=== PATIENT | female | born 1945 | race Caucasian/White ===

== ENCOUNTER → 2017-05-29 | Outpatient (CLI) | payer OTHER | END | disposition home or self-care (01) | LOC: MRI 10:45 | DX: M16.12 Unilateral primary osteoarthritis, left hip (principal); R10.2 Pelvic and perineal pain ==

== ENCOUNTER → 2018-07-16 | Outpatient (CLI) | payer OTHER | END | disposition home or self-care (01) | LOC: RAD 13:23 | DX: M47.892 Other spondylosis, cervical region (principal); M48.02 Spinal stenosis, cervical region ==

== ENCOUNTER → 2018-11-12 | Outpatient (CLI) | payer OTHER | END | disposition home or self-care (01) | LOC: RAD 10:26 → MAMMO 11:30 | DX: Z12.31 Encounter for screening mammogram for malignant neoplasm of breast (principal); Z78.0 Asymptomatic menopausal state ==

== ENCOUNTER → 2019-01-14 | Day surgery (SDC) | payer OTHER ==
[~2019-01-14] VITALS: Ht 170.1 cm; Wt 61.2 kg
[~2019-01-14] MED LIST: LISINOPRIL5 MG PO; SIMVASTATIN5 MG PO
--- NOTE | ~2019-01-14 | O ---
[place], [place] OPERATIVE NOTE NAME: ALFIE POLLARD UNIT #: [id number] ROOM: DOCTOR: CATHIE RODRIGUEZ MD BIRTHDATE: [birth year] DOS: 01/14/2019 INDICATION FOR PROCEDURE: A 73-year-old patient who has presented with a chief complaint concerning about colonic screening. ALLERGIES: No known medication. FAMILY HISTORY: Noncontributory. PAST SURGICAL HISTORY: Cholecystectomy and appendectomy. PAST MEDICAL HISTORY: Hypertension and hypercholesterolemia. PROCEDURE: Today's procedure part of investigation is colonoscopy. PREMEDICATION: Propofol. SCOPE: Olympus forward-viewing colonoscope 10L video. REPORT: After putting the patient in left lateral position and application of lubricant to the scope, the scope was introduced. Thereafter under direct visualization, advanced through the length of colon without difficulty. Base of the cecum explored, appendiceal orifice identified, ileocecal valve was defined. There is some retained stool in the cecum. This was as much as possible washed away. No pathology identified. The patient extubated and tolerated the procedure well. IMPRESSION: Normal colonoscopic examination. PLAN: High fiber fruit diet. ACTIVITY: Ad figueroa. FOLLOWUP: Routinely with you in office, p.r.n. visit with us in [facility]. Follow-up colonoscopy in 10 years unless there are symptoms in which case follow-up should be as needed. Thank you very much indeed for your kind referral. [place], [place] OPERATIVE NOTE NAME: ALFIE POLLARD UNIT #: [id number] ROOM: DOCTOR: CATHIE RODRIGUEZ MD BIRTHDATE: [birth year] CATHIE RODRIGUEZ MD CM:OPRECORD:OPERATIVE NOTE [id number] CATHIE RODRIGUEZ MD 02/03/19 1511 interface
[2019-01-14 09:54] VITALS: BP 139/58
[2019-01-14 11:18] VITALS: BP 124/66
[2019-01-14 11:19] VITALS: BP 118/64
[2019-01-14 11:43] VITALS: BP 121/70
== END | disposition home or self-care (01) ==
LOC: SDC 01-12 15:30
DX: Z12.11 Encounter for screening for malignant neoplasm of colon (principal); E78.00 Pure hypercholesterolemia, unspecified; I10 Essential (primary) hypertension; M19.90 Unspecified osteoarthritis, unspecified site; Z98.890 Other specified postprocedural states; Z90.49 Acquired absence of other specified parts of digestive tract; Z79.899 Other long term (current) drug therapy
CPT/HCPCS: 00812; G0121

== ENCOUNTER → 2021-03-22 | Outpatient (CLI) | payer OTHER ==
[2021-03-22 17:03] LABS: BASO % 0.6 % (0.0-1.0); EOS # 0.1 10*3/uL (0.0-0.4); EOS % 1.1 % (1.0-4.0); HEMATOCRIT 37.7 % (37.0-47.0); LYMPH # 1.4 10*3/uL (1.3-4.4); LYMPH % 22.4 % (27.0-41.0); MEAN CELL VOLUME 92.2 fl (81.0-99.0); MEAN CORPUSCULAR HGB 29.3 pg (27.0-31.0); MEAN CORPUSCULAR HGB CONC 31.8 g/dl (33.0-37.0); MEAN PLATELET VOLUME 10.9 fl (9.6-12.3); MONO # 0.6 10*3/uL (0.1-1.0); MONO % 9.2 % (3.0-9.0); NEUT # 4.3 10*3/uL (2.3-7.9); NEUT % 66.5 % (47.0-73.0); PLATELET COUNT AUTOMATED 268 10*3/uL (130-400); RED BLOOD COUNT 4.09 10*6/uL (4.10-5.10); RED CELL DISTRI WIDTH 12.6 % (0-14.5); WHITE BLOOD COUNT 6.4 10*3/uL (4.8-10.8)
[2021-03-22 19:41] LABS: BF LYMPHOCYTES 4 %; BF MACROPHAGES 13 %; BF NEUTROPHILS 83 %
[2021-03-22 19:43] LABS: BODY FLUID WBC 10840 /uL
[2021-03-23 15:07] LABS: ACID FAST SPEC PROCESSING Direct Inoculation (.)
== END | disposition home or self-care (01) ==
LOC: LAB 15:58
PROVIDERS: ATTEND Orthopaedic Surgery
DX: M25.462 Effusion, left knee (principal)

== ENCOUNTER → 2021-10-02 | Outpatient (CLI) | payer OTHER | END | disposition home or self-care (01) | LOC: MAMMO 09:21 | PROVIDERS: ATTEND Internal Medicine | DX: Z12.31 Encounter for screening mammogram for malignant neoplasm of breast (principal); Z78.0 Asymptomatic menopausal state ==

== ENCOUNTER → 2022-12-17 | Outpatient (CLI) | payer OTHER ==
[2022-12-17 08:25] LABS: BASO % 0.6 % (0.0-1.0); EOS # 0.1 10*3/uL (0.0-0.4); EOS % 2.7 % (1.0-4.0); HEMATOCRIT 37.3 % (37.0-47.0); LYMPH # 1.5 10*3/uL (1.3-4.4); LYMPH % 31.9 % (27.0-41.0); MEAN CELL VOLUME 91.9 fl (81.0-99.0); MEAN CORPUSCULAR HGB 29.3 pg (27.0-31.0); MEAN CORPUSCULAR HGB CONC 31.9 g/dl (33.0-37.0); MEAN PLATELET VOLUME 10.4 fl (9.6-12.3); MONO # 0.4 10*3/uL (0.1-1.0); MONO % 8.8 % (3.0-9.0); NEUT # 2.7 10*3/uL (2.3-7.9); NEUT % 55.8 % (47.0-73.0); PLATELET COUNT AUTOMATED 239 10*3/uL (130-400); RED BLOOD COUNT 4.06 10*6/uL (4.10-5.10); RED CELL DISTRI WIDTH 12.9 % (0-14.5); WHITE BLOOD COUNT 4.8 10*3/uL (4.8-10.8)
[2022-12-17 08:48] LABS: ALKALINE PHOSPHATASE 76 U/L (46-116); BUN 15 mg/dl (9-23); CHLORIDE 104 mmol/L (98-107); CHOLESTEROL 152 mg/dL (<200); FREE T4 1.06 ng/dl (0.89-1.76); LDL CHOLESTEROL 89 mg/dL (9-159); POTASSIUM 4.5 mmol/L (3.4-5.1); SGPT/ALT 12 U/L (10-49); THYROID STIM HORMONE (HS) 3.386 uIU/ml (0.550-4.780); TOTAL PROTEIN 6.5 gm/dL (6.0-8.0); TRIGLYCERIDES 59 mg/dl (<150)
[2022-12-17 10:04] LABS: VITAMIN D, 25-HYDROXY 28.8 ng/mL (30-100)
== END | disposition home or self-care (01) ==
LOC: LAB 07:41
PROVIDERS: ATTEND Internal Medicine
DX: I10 Essential (primary) hypertension (principal); E55.9 Vitamin D deficiency, unspecified; Z13.820 Encounter for screening for osteoporosis; Z13.0 Encounter for screening for diseases of the blood and blood-forming organs and certain disorders involving the immune mechanism; Z13.1 Encounter for screening for diabetes mellitus; Z13.220 Encounter for screening for lipoid disorders; Z13.228 Encounter for screening for other metabolic disorders; Z13.6 Encounter for screening for cardiovascular disorders; Z13.9 Encounter for screening, unspecified

== ENCOUNTER 2023-04-04 11:36 | Emergency (ER) | payer OTHER ==
[~2023-04-04] VITALS: Wt 65.8 kg
== END 2023-04-04 13:51 | disposition home or self-care (01) ==
LOC: ED 11:36
DX: S01.01XA Laceration without foreign body of scalp, initial encounter (principal); Z90.49 Acquired absence of other specified parts of digestive tract; Z98.890 Other specified postprocedural states; W01.0XXA Fall on same level from slipping, tripping and stumbling without subsequent striking against object, initial encounter; Y93.89 Activity, other specified; Y92.89 Other specified places as the place of occurrence of the external cause; Y99.8 Other external cause status

== ENCOUNTER → 2023-05-24 | Outpatient (CLI) | payer OTHER | END | disposition home or self-care (01) | LOC: RAD 05-17 01:23 | PROVIDERS: ATTEND Internal Medicine | DX: M81.0 Age-related osteoporosis without current pathological fracture (principal); Z78.0 Asymptomatic menopausal state ==

== ENCOUNTER → 2023-12-02 | Outpatient (CLI) | payer OTHER ==
[2023-12-02 14:28] LABS: BASO # 0.1 10*3/uL (0.0-0.1); BASO % 0.7 % (0.0-1.0); EOS # 0.2 10*3/uL (0.0-0.4); EOS % 2.5 % (1.0-4.0); HEMATOCRIT 39.5 % (37.0-47.0); LYMPH # 2.3 10*3/uL (1.3-4.4); LYMPH % 32.7 % (27.0-41.0); MEAN CELL VOLUME 92.1 fl (81.0-99.0); MEAN CORPUSCULAR HGB 29.6 pg (27.0-31.0); MEAN CORPUSCULAR HGB CONC 32.2 g/dl (33.0-37.0); MEAN PLATELET VOLUME 10.3 fl (9.6-12.3); MONO # 0.5 10*3/uL (0.1-1.0); MONO % 7.5 % (3.0-9.0); NEUT # 3.9 10*3/uL (2.3-7.9); NEUT % 56.5 % (47.0-73.0); PLATELET COUNT AUTOMATED 235 10*3/uL (130-400); RED BLOOD COUNT 4.29 10*6/uL (4.10-5.10); RED CELL DISTRI WIDTH 12.6 % (0-14.5); WHITE BLOOD COUNT 6.9 10*3/uL (4.8-10.8)
[2023-12-02 15:09] LABS: VITAMIN D, 25-HYDROXY 51.5 ng/mL (30-100)
[2023-12-02 15:12] LABS: ALKALINE PHOSPHATASE 85 U/L (46-116); BUN 26 mg/dl (9-23); CHLORIDE 103 mmol/L (98-107); CHOLESTEROL 160 mg/dL (<200); FREE T4 0.99 ng/dl (0.89-1.76); LDL CHOLESTEROL 90 mg/dL (9-159); POTASSIUM 4.1 mmol/L (3.4-5.1); SGPT/ALT 12 U/L (5-49); TOTAL PROTEIN 6.7 gm/dL (6.0-8.0); TRIGLYCERIDES 78 mg/dl (<150)
== END | disposition home or self-care (01) ==
LOC: LAB 13:39 → MAMMO 14:00
PROVIDERS: ATTEND Internal Medicine
DX: Z12.31 Encounter for screening mammogram for malignant neoplasm of breast (principal); I10 Essential (primary) hypertension; E78.2 Mixed hyperlipidemia; E55.9 Vitamin D deficiency, unspecified; Z13.89 Encounter for screening for other disorder; Z13.21 Encounter for screening for nutritional disorder; Z13.1 Encounter for screening for diabetes mellitus; Z13.0 Encounter for screening for diseases of the blood and blood-forming organs and certain disorders involving the immune mechanism; Z13.220 Encounter for screening for lipoid disorders; Z13.228 Encounter for screening for other metabolic disorders; Z79.899 Other long term (current) drug therapy

== ENCOUNTER → 2024-05-18 | Outpatient (CLI) | payer OTHER ==
[2024-05-18 13:58] LABS: BUN 15 mg/dl (9-23); CHLORIDE 105 mmol/L (98-107)
== END | disposition home or self-care (01) ==
LOC: LAB 13:19
PROVIDERS: ATTEND Internal Medicine
DX: E11.9 Type 2 diabetes mellitus without complications (principal); E78.2 Mixed hyperlipidemia; E55.9 Vitamin D deficiency, unspecified

== ENCOUNTER → 2025-07-02 | Outpatient (CLI) | payer OTHER ==
[2025-07-02 07:39] LABS: BASO # 0.0 10*3/uL (0.0-0.1); BASO % 0.6 % (0.0-1.0); EOS # 0.2 10*3/uL (0.0-0.4); EOS % 2.9 % (1.0-4.0); MEAN CELL VOLUME 91.6 fl (81.0-99.0); MEAN CORPUSCULAR HGB 29.3 pg (27.0-31.0); MEAN PLATELET VOLUME 10.3 fl (9.6-12.3); MONO # 0.4 10*3/uL (0.1-1.0); MONO % 8.1 % (3.0-9.0); NEUT # 3.3 10*3/uL (2.3-7.9); NEUT % 63.8 % (47.0-73.0); NUCLEATED RED BLOOD CELL 0.0 % (0.0-0.0); NUCLEATED RED BLOOD CELL 0.0 10*3/uL (0.0-0.0); PLATELET COUNT AUTOMATED 270 10*3/uL (130-400); RED CELL DISTRI WIDTH 12.8 % (0-14.5)
[2025-07-02 08:22] LABS: VITAMIN D, 25-HYDROXY 44.4 ng/mL (30-100)
[2025-07-02 08:22] LABS: BUN 16 mg/dl (9-23); FREE T4 1.13 ng/dl (0.89-1.76); LDL CHOLESTEROL 102 mg/dL (9-159); SGPT/ALT 16 U/L (5-49)
== END | disposition home or self-care (01) ==
LOC: LAB 07:04
PROVIDERS: ATTEND Internal Medicine
DX: I10 Essential (primary) hypertension (principal); E78.2 Mixed hyperlipidemia; E53.9 Vitamin B deficiency, unspecified; E55.9 Vitamin D deficiency, unspecified; E11.9 Type 2 diabetes mellitus without complications; R53.83 Other fatigue